=== PATIENT | male | born 1955 | race Caucasian/White ===

== ENCOUNTER 2022-04-26 11:34 | Emergency (ER) | payer SELFPAY ==
[~2022-04-26] VITALS: Ht 182.9 cm; Wt 81.6 kg
[2022-04-26] MEDS ORDERED: FOLIC ACID 1 MG TAB PO ONE (13:15)
[2022-04-26 13:27] LABS: BASOPHILS % 0.4 % (0.0-1.0); HEMATOCRIT 37.1 % (38.2-49.6); HEMOGLOBIN 13.6 g/dL (14.0-18.0); LYMPHOCYTES # (AUTO) 0.9 (1.0-3.2); LYMPHOCYTES % 7.6 % (18.0-39.1); MEAN CORPUSCULAR HEMOGLOBIN 33.3 pg (28-32); MEAN CORPUSCULAR HGB CONC 36.7 g/dL (31-35); MEAN CORPUSCULAR VOLUME 90.9 fL (81-99); MONOCYTES # (AUTO) 0.8 (0.2-0.8); NEUTROPHILS # (AUTO) 9.5 (2.1-6.9); NEUTROPHILS % 84.6 % (38.7-80.0); PLATELET COUNT 287 x10e3/uL (140-360); RED BLOOD COUNT 4.08 x10e6/uL (4.3-5.7); RED CELL DISTRIBUTION WIDTH 12.4 % (11.7-14.4)
[2022-04-26 13:50] LABS: ALBUMIN 3.9 g/dL (3.5-5.0); ALBUMIN/GLOBULIN RATIO 1.1 (0.8-2.0); ANION GAP 15.7 mmol/L (8-16); CALCIUM 9.4 mg/dL (8.4-10.2); CREATININE, SERUM 0.79 mg/dL (0.72-1.25); POTASSIUM 4.7 mmol/L (3.5-5.1)
[2022-04-26 14:04] LABS: SALICYLATE < 5.0 mg/dL (0-30)
[2022-04-26] MEDS ORDERED: SODIUM CHLORIDE 3% 100 ML IV ONE (14:15)
[2022-04-26 14:24] LABS: LIPASE 35 U/L (8-78)
[2022-04-26 16:10] LABS: PROTHROMBIN TIME 13.4 seconds (11.9-14.5)
[2022-04-26 16:11] LABS: PARTIAL THROMBOPLASTIN TIME 40.5 seconds (23.8-35.5)
[2022-04-26 16:28] LABS: CREATINE KINASE MB 7.6 ng/mL (0-5.0)
[2022-04-26] MEDS ORDERED: SODIUM CHLORIDE 0.9% 1000ML 1,000 ML IV SCH (16:30)
[2022-04-26] MEDS ORDERED: SODIUM CHLORIDE 0.9% 1000ML 1,000 ML ONE (16:39)
[2022-04-26 17:10] VITALS: BP 161/106
[2022-04-27] MEDS ORDERED: THIAMINE HCL 100 MG TAB PO SCH (09:00)
[2022-04-27] MEDS ORDERED: MULTIVITAMINS/MINERALS TAB PO SCH (09:00)
== END 2022-04-26 17:40 | disposition other institution (70) ==
LOC: ER 11:37
DX: R41.0 Disorientation, unspecified (principal); E87.1 Hypo-osmolality and hyponatremia; G31.2 Degeneration of nervous system due to alcohol
CPT/HCPCS: 0223U; 36415; 70450; 80053; 80320; 80329 ×2; 82140; 82550; 82553; 83605; 83690; 84295; 84484; 85025; 85610; 85730; 99285; J7030; J7131